=== PATIENT | male | born 1995 ===

== ENCOUNTER 2018-06-22 17:28 | Emergency (ER) | payer OTHER ==
[2018-06-22] MEDS ORDERED: cefTRIAXone 1 GM Vial IM ONE (19:02)
[2018-06-22] MEDS ORDERED: Diphtheria,Pertussis(Acell),Tetanus Vaccine 0.5 ML Syringe IM ONE (19:02)
--- NOTE | 2018-06-22 19:05 | EDM.PDOC ---
ED HPI GENERAL MEDICAL PROBLEM - General Chief Complaint: Upper Extremity Injury/Pain Stated Complaint: SMASHED RT FINGERS Time Seen by Provider: 06/22/18 19:04 Source of Information: Reports: Patient - History of Present Illness INITIAL COMMENTS - FREE TEXT/NARRATIVE: HISTORY AND PHYSICAL: History of present illness: []The patient just prior to arrival crushed the distal tips of his fingers on the right the third and fourth digit he did avulse both nailbeds there is some macerated tissue there however bones appear intact on x-ray neurovascularly intact otherwise No fever nausea vomiting chills sweats Review of systems: As per history of present illness and below otherwise all systems reviewed and negative. Past medical history: As per history of present illness and as reviewed below otherwise noncontributory. Surgical history: As per history of present illness and as reviewed below otherwise noncontributory. Social history: No reported history of drug or alcohol abuse. Family history: As per history of present illness and as reviewed below otherwise noncontributory. Physical exam: HEENT: Atraumatic, normocephalic, pupils reactive, negative for conjunctival pallor or scleral icterus, mucous membranes moist, throat clear, neck supple, nontender, trachea midline. Lungs: Clear to auscultation, breath sounds equal bilaterally, chest nontender. Heart: S1S2, regular, negative for clicks, rubs, or JVD. Abdomen: Soft, nondistended, nontender. Negative for masses or hepatosplenomegaly. Negative for costovertebral tenderness. Pelvis: Stable nontender. Genitourinary: Deferred. Rectal: Deferred. Extremities: Atraumatic, negative for cords or calf pain. Neurovascular unremarkable. Neuro: Awake, alert, oriented. Cranial nerves II through XII unremarkable. Cerebellum unremarkable. Motor and sensory unremarkable throughout. Exam nonfocal. Skin as per history of present illness otherwise unremarkable Diagnostics: [Right hand 3 views ] Therapeutics: [Rocephin 1 g IM Tetanus status is updated ]Lidocaine, digital block 2 Wounds cleansed and explored Third digit #4 4-0 Monocryl sutures interrupted Fourth digit #3 4-0 Monocryl sutures interrupted A shunt lives in mind that area he'll follow-up with Dr. Arias hand specialist there on Monday, I did call and make arrangements with Dr. Arias Impression: [Impression injury distal third and fourth digits, pulse nailbeds] Definitive disposition and diagnosis as appropriate pending reevaluation and review of above. Right Finger-Middle Pain Score (Numeric/FACES): 8 - Related Data Allergies Allergy/AdvReac Type Severity Reaction Status Date / Time No Known Allergies Allergy Verified 06/22/18 18:42 Home Meds: Home Meds . [No Known Home Meds] 06/22/18 [History] Past Medical History - Past Health History Medical/Surgical History: Denies Medical/Surgical History Social & Family History - Tobacco Use Smoking Status *Q: Never Smoker - Recreational Drug Use Recreational Drug Use: No Review of Systems - Review of Systems Review Of Systems: See Below ED EXAM, GENERAL - Physical Exam Exam: See Below Course - Vital Signs Last Recorded V/S: Last Vital Signs Temp 98.5 F 06/22/18 18:31 Pulse 63 06/22/18 18:31 Resp BP 153/73 H 06/22/18 18:31 Pulse Ox 97 06/22/18 18:31 - Orders/Labs/Meds Orders: Active Orders 24 hr Category Date Time Status Vaccines to be Administered [RC] PER UNIT ROUTINE Care 06/22/18 19:02 Active Meds: Medications Discontinued Medications Generic Name Dose Route Start Last Admin Trade Name Freq PRN Reason Stop Dose Admin Ceftriaxone Sodium 1 gm 06/22/18 19:02 06/22/18 19:28 Rocephin IM 06/22/18 19:03 1 gm ONETIME ONE Administration Diphtheria/Tetanus/Acell Pertussis 0.5 ml 06/22/18 19:02 06/22/18 19:27 Adacel IM 06/22/18 19:03 0.5 ml .ONCE ONE Administration Lidocaine HCl Confirm 06/22/18 19:13 06/22/18 19:28 Xylocaine-Mpf 1% Administered 06/22/18 19:14 2.1 mls/hr Dose Administration 5 mls @ as directed .ROUTE .STK-MED ONE Lidocaine HCl Confirm 06/22/18 19:24 Xylocaine 1% Administered 06/22/18 19:25 Dose 50 ml .ROUTE .STK-MED ONE Departure - Departure Time of Disposition: 20:32 Disposition: Home, Self-Care 01 Condition: Good Clinical Impression: Nailbed avulsion - Discharge Information Referrals: PCP,None [Primary Care Provider] - Forms: ED Department Discharge Additional Instructions: Standard wound care as instructed Keep wounds clean and dry for 48 hours Medication as prescribed Change dressings if it bleeds through or becomes soiled I've discussed the case with Dr. Arias hand specialist at [facility], he will see you on Monday, you are to call his office and they will schedule a time for you to be seen in his office can be reached through the [facility] switchboard at [phone] The following information is given to patients seen in the emergency department who are being discharged to home. This information is to outline your options for follow-up care. We provide all patients seen in our emergency department with a follow-up referral. The need for follow-up, as well as the timing and circumstances, are variable depending upon the specifics of your emergency department visit. If you don't have a primary care physician on staff, we will provide you with a referral. We always advise you to contact your personal physician following an emergency department visit to inform them of the circumstance of the visit and for follow-up with them and/or the need for any referrals to a consulting specialist. The emergency department will also refer you to a specialist when appropriate. This referral assures that you have the opportunity for follow-up care with a specialist. All of these measure are taken in an effort to provide you with optimal care, which includes your follow-up. Under all circumstances we always encourage you to contact your private physician who remains a resource for coordinating your care. When calling for follow-up care, please make the office aware that this follow-up is from your recent emergency room visit. If for any reason you are refused follow-up, please contact the [facility] emergency department at and asked to speak to the emergency department charge nurse. - My Orders Last 24 Hours: My Active Orders 06/22/18 19:02 Vaccines to be Administered [RC] PER UNIT ROUTINE - Assessment/Plan Last 24 Hours: My Active Orders 06/22/18 19:02 Vaccines to be Administered [RC] PER UNIT ROUTINE
--- NOTE | 2018-06-22 19:08 | CR ---
HISTORY: Crush injury. TECHNIQUE: Three views of the right hand. COMPARISON: No prior. FINDINGS: Irregularity of the soft tissues of the 3rd and 4th digits likely relates to soft tissue injury. No radiopaque foreign body. No acute fracture or malalignment. Joint spaces are maintained. IMPRESSION: 1. Irregularity of the soft tissues of the 3rd and 4th digits likely relates to soft tissue injury. 2. No radiopaque foreign body. 3. No acute fracture. Dictated by Rogre Barajas MD @ 06/22/2018 7:07:00 PM Dictated by: Roger Barajas MD @ 06/22/2018 19:07:05 (Electronically Signed)
[2018-06-22] MEDS ORDERED: Lidocaine 1% 50 ML MDV ONE (19:24)
[2018-06-22] MEDS ORDERED: Bacitracin Oint 1 GM U/D Packet ONE (20:31)
[2018-06-22] MEDS ORDERED: Bacitracin Oint 1 GM U/D Packet TOP ONE (20:51)
== END 2018-06-22 21:06 | disposition home or self-care (01) ==
LOC: MW.ED 17:28
DX: S61.312A Laceration without foreign body of right middle finger with damage to nail, initial encounter (principal); S61.314A Laceration without foreign body of right ring finger with damage to nail, initial encounter; Z23 Encounter for immunization
CPT/HCPCS: 11760; 73130; 90471; 90715; 96372; 99283; J0696; J2001